=== PATIENT | female | born 1990 | race Caucasian/White ===

== ENCOUNTER 2017-03-02 07:40 | Emergency (ER) | payer SELFPAY ==
[~2017-03-02] VITALS: Ht 160 cm; Wt 59.0 kg
[~2017-03-02 07:40] MED LIST: ALBUTEROL0.09 MG/A2 INH; AMOXICILLIN500 MG PO; AORACILLIN B500 MG PO; BACTRIM DS 8001 TA1 PO; BENADRYL50 MG PO; BIRTH CONTROL1 EAC1 PO; CIPRO500 MG PO; CLARITIN10 MG PO; IBUPROFEN600 MG PO; MACROBID100 MG PO; MEDROL DOSEPAK4 MG PO; MOTRIN800 MG PO; ORTHO EVRA TD; PRILOSEC20 MG PO; TESSALON PERLE200 MG PO; VICODIN 5/500 505 MG; VICODIN 5/500 505 MG PO; VOLTAREN50 M1 PO; ZITHROMAX Z PA250 MG PO; ZOFRAN ODT4 MG SL; ZOLOFT100 MG PO
[2017-03-02] MEDS ORDERED: PREDNISONE50 MG PO (09:14)
== END 2017-03-02 09:49 | disposition home or self-care (01) ==
LOC: ED 07:40
DX: J20.9 Acute bronchitis, unspecified (principal); R50.9 Fever, unspecified; F17.200 Nicotine dependence, unspecified, uncomplicated; Z88.8 Allergy status to other drugs, medicaments and biological substances